=== PATIENT | female | born 1945 | race Caucasian/White ===

== ENCOUNTER 2023-05-20 12:19 | Emergency (ER) | payer OTHER ==
[~2023-05-20] VITALS: Ht 160 cm; Wt 79.8 kg
[2023-05-20 12:24] VITALS: BP 102/53; PULSE 65; RESP 14; TEMP 98.4; O2SAT 100
[2023-05-20] MEDS ORDERED: ACETAMINOPHEN EXTRA STRENGTH 500 MG TAB PO ONE (13:05)
[2023-05-20] MEDS ORDERED: KETOROLAC 30 MG/ML VIAL IM ONE (14:15)
[2023-05-20 15:23] VITALS: TEMP 97.6
[2023-05-20] MEDS ORDERED: PROPOFOL 200 MG/20 ML VIAL IV ONE ×2 (15:43→15:45)
[2023-05-20] MEDS ORDERED: ACET-10509 PO (17:36)
[2023-05-20] MEDS ORDERED: IBUP-2213 PO (17:36)
[2023-05-20 17:49] VITALS: BP 118/67; PULSE 74; RESP 17; O2SAT 98
== END 2023-05-20 17:50 | disposition home or self-care (01) ==
LOC: MED 12:19
DX: S52.592A Other fractures of lower end of left radius, initial encounter for closed fracture (principal); Z79.899 Other long term (current) drug therapy; W19.XXXA Unspecified fall, initial encounter; Y93.89 Activity, other specified; Y92.89 Other specified places as the place of occurrence of the external cause; Y99.8 Other external cause status
CPT/HCPCS: 25605; 73110; 96372; 99152; 99285; J1885; J2704; Q0092